=== PATIENT | male | born 1955 | race Caucasian/White ===

== ENCOUNTER 2018-07-24 22:15 | Emergency (ER) | payer BC ==
[2018-07-24] MEDS ORDERED: HYDROcodone/ACETAMIN 5-325 MG* 1 TAB PO ONE (23:54)
[2018-07-24] MEDS ORDERED: Ibuprofen TAB* 600 MG PO ONE (23:54)
[2018-07-24] MEDS ORDERED: Diazepam TAB(*) 5 MG PO ONE (23:54)
--- NOTE | 2018-07-24 23:55 | ED ---
Neck Pain - HPI Summary HPI Summary: This patient is a 63 year old M presenting to [facility] accompanied by his with a chief complaint of neck stiffness that began 07-22-18 and has gotten worse since. The patient rates the pain 9/10 in severity. Symptoms aggravated by movement. The day the pain began he was moving boxes but besides this he has not injury to the neck. He has tried creams, motrin, and hot baths without relief. Patient denies paresthesia, weakness, CP, SOB, fever, chills, blurred vision, double vision, n/v/d, ABD pain, MVA, incontinence, edema, sore throat, rashes, and bruises. 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 No hx DM and HTN. - History of Current Complaint Chief Complaint: EDNeckComplaint Stated Complaint: STIFF NECK/NECK PAIN Hx Obtained From: Patient Timing: Constant Onset/Duration: Started days ago, Still Present Severity Initially: Mild Severity Currently: Severe Pain Intensity: 9 Pain Scale Used: 0-10 Numeric Location: Discrete At: - neck Aggravating Factors: Movement Alleviating Factors: Nothing Associated Signs & Symptoms: Positive: Negative - paresthesia, weakness, CP, SOB , fever, chills, blurred vision, double vision, n/v/d, ABD pain, MVA, incontinence, edema, rashes, and bruises. 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 - Allergies/Home Medications Allergies/Adverse Reactions: Allergies Allergy/AdvReac Type Severity Reaction Status Date / Time cephalexin [From Keflex] Allergy Intermediate Hives Verified 07/24/18 22:28 PMH/Surg Hx/FS Hx/Imm Hx Endocrine/Hematology History: Denies: Hx Diabetes Cardiovascular History: Denies: Hx Hypertension, Hx Pacemaker/ICD Sensory History: Denies: Hx Hearing Aid Psychiatric History: Denies: Hx Panic Disorder - Surgical History Surgery Procedure, Year, and Place: TONSILS 1961 Infectious Disease History: No Infectious Disease History: Denies: Traveled Outside the [place] in Last 30 Days - Family History Known Family History: Negative: Renal Disease, Seizure Disorder - Social History Occupation: Employed Full-time Lives: With Family Alcohol Use: None Substance Use Type: Reports: None Smoking Status (MU): Never Smoked Tobacco Review of Systems Negative: Fever Negative: Blurred Vision Negative: Sore Throat Negative: Chest Pain Negative: Shortness Of Breath Gastrointestinal: Negative - incontinence Negative: Abdominal Pain, Vomiting, Diarrhea, Nausea Genitourinary: Negative - incontinence Musculoskeletal: Negative - neck stiffness Negative: Edema Negative: Rash, Bruising Negative: Headache, Weakness, Paresthesia All Other Systems Reviewed And Are Negative: No Physical Exam - Summary Physical Exam Summary: Appearance: Alert, conversive, nontoxic appearing, mild distress secondary to pain Skin: Warm, dry, no mottling, no rashes, no contusions HEENT: EOMI, PERRL, moist mucous membranes Neck: significant Para spinal tenderness in the neck Respiratory: Clear to auscultation, breath sounds present, no rales, no rhonchi , no wheezes Cardiovascular: RRR, pulses are symmetrical in both lower and upper extremities Abdomen: Soft, non-tender Bowel Sounds: Present Musculoskeletal: No CVA tenderness, no obvious deformity, moving all extremities in a grossly normal manner. Neurological: A&Ox3, CN II-XII Intact, moving all extremities symmetrically Psychiatric: Normal affect and mood Triage Information Reviewed: Yes Vital Signs On Initial Exam: Initial Vitals Temp Pulse Resp BP Pulse Ox 99.8 F 72 24 147/82 96 07/24/18 22:23 07/24/18 22:23 07/24/18 22:23 07/24/18 22:23 07/24/18 22:23 Vital Signs Reviewed: Yes Diagnostics - Vital Signs Vital Signs Temp Pulse Resp BP Pulse Ox 07/24/18 22:23 99.8 F 72 24 147/82 96 - Laboratory Lab Statement: Any lab studies that have been ordered have been reviewed, and results considered in the medical decision making process. Neck Course/Dx - Course Assessment/Plan: This patient is a 63 year old M presenting to [facility] accompanied by his with a chief complaint of neck stiffness that began and has gotten worse since. The patient rates the pain 9/10 in severity. Symptoms aggravated by movement. The day the pain began he was moving boxes but besides this he has not injury to the neck. He has tried creams, motrin, and hot baths without relief. Patient denies paresthesia, weakness, CP, SOB, fever, chills, blurred vision, double vision, n/v/d, ABD pain, MVA, incontinence , edema, sore throat, rashes, and bruises. 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 No hx DM and HTN. In the ED course the patient was given motrin, valium, and norco. These alleviated his sx. Dx cervical strain, acute neck pain,. Patient will be discharged with prescription for valium and norco and follow up from Dr. Garcia. The patient was given a note for work and advised to take a few days off. The patient is agreeable with this plan. - Diagnoses Provider Diagnoses: Neck strain, Cervical pain Discharge - Sign-Out/Discharge Documenting (check all that apply): Patient Departure - Discharge Plan Condition: Stable Disposition: HOME Prescriptions: Diazepam TAB(*) [Valium TAB(*)] 5 mg PO TID PRN #20 tab MDD 3 PRN Reason: Pain - Back HYDROcodone/ACETAMIN 5-325 MG* [[place] 5-325 TAB*] 2 tab PO Q6H PRN #30 tab MDD 8 PRN Reason: Pain Patient Education Materials: Cervical Strain (DC), Acute Neck Pain (ED) Forms: *Work Release Referrals: Patti Garcia, [employer] [Primary Care Provider] - Additional Instructions: take the medications as instructed. return if worse or any new symptoms. Take the valium and norco for pain. you may also take motrin. norco has tylenol in it. do not take tylenol with the norco. please follow up with your primary care physician by Saturday. - Billing Disposition and Condition Condition: STABLE Disposition: Home - Attestation Statements Document Initiated by Mazinibe: Yes Documenting Scribe: Franco Sanchez Provider For Whom Estuardo is Documenting (Include Credential): Nisha Douglas MD Scribe Attestation: Franco Almanzar , scribed for Nisha Douglas MD on 07/25/18 at 0322. Scribe Documentation Reviewed: Yes Provider Attestation: The documentation as recorded by the Franco lea accurately reflects the service I personally performed and the decisions made by me, Nisha Douglas MD
[2018-07-25] MEDS ORDERED: Diazepam TAB(*) 5 MG PO ONE (00:36)
[2018-07-25 00:53] VITALS: BP 138/77
== END 2018-07-25 00:53 | disposition home or self-care (01) ==
LOC: ED 22:15
DX: S16.1XXA Strain of muscle, fascia and tendon at neck level, initial encounter (principal); X50.0XXA Overexertion from strenuous movement or load, initial encounter; Y92.9 Unspecified place or not applicable; M54.2 Cervicalgia
CPT/HCPCS: 99282; A9270-GY